=== PATIENT | male | born 1965 | race Caucasian/White ===

== ENCOUNTER → 2017-01-10 | Day surgery (SDC) | payer OTHER ==
[~2017-01-10] MED LIST: ACETAMINOPHEN 1000 MG/100 ML 100 ML IV ONE; BUPIVACAINE/EPINEPHRINE 0.5% 50 ML VIAL ONE; LACTATED RINGER'S 1000 ML INJ 1,000 ML ONE; MIDAZOLAM HCL 2 MG/2 ML VIAL ONE; ONDANSETRON HCL 4 MG/2 ML VIAL IV PUSH ONE; PROPOFOL 200 MG/20 ML AMP IV ONE
--- NOTE | 2017-01-10 17:42 | MP ---
cc: MONICA BARFIELD DATE OF SURGERY 01/10/17 PREOPERATIVE DIAGNOSIS Malignant melanoma upper back. POSTOPERATIVE DIAGNOSIS Malignant melanoma upper back. PROCEDURE Wide excision of malignant melanoma upper back. SURGEON Viky Barfield MD ANESTHESIA General OPERATIVE PROCEDURE The patient was brought to the operating room and, after satisfactory general anesthesia had been obtained, the patient was placed in the left lateral decubitus position and the upper back prepped and draped in the usual sterile fashion. An elliptical skin incision was marked with a sterile pen to include a wide excision around the lesion. The incision was made and carried out sharply through the subcutaneous tissue with the cautery being used for hemostasis. The ellipse of skin was removed along with the subcutaneous tissue using the cautery. It was marked for margins and sent for permanent pathology. Attention was turned to hemostasis which was achieved with the cautery. The subcutaneous tissue was then undermined with the cautery after instilling extra 0.5% Marcaine with epinephrine. The skin was then able to be approximated with minimal tension. The dermal layer was closed with interrupted 3-0 as well as interrupted 2-0 Vicryl sutures. The skin subcuticular stitch was placed with interrupted 4-0 PDS. Steri-Strips and then a sterile compression dressing were placed. The patient was then awakened and taken from the operating room, in satisfactory condition, having tolerated the procedure without a problem. Estimated blood loss was less than 30 mL. The instrument, sponge and needle counts were reported as being correct x2 at the end of the procedure. MD TERRELL Danielson/ /2:31 PM /5:43 PM
== END | disposition home or self-care (01) ==
LOC: ESDC 11:35
PROVIDERS: ATTEND Surgery
DX: C43.59 Malignant melanoma of other part of trunk (principal)
CPT/HCPCS: 00300; 11606; 88305; J0131; J2250; J2405; J3010; J7120

== ENCOUNTER → 2017-03-21 | Day surgery (SDC) | payer OTHER ==
[~2017-03-21] MED LIST changes: +KETOROLAC TROMETHAMINE 30 MG/ML (IVP) VIAL IV PUSH ONE; -LACTATED RINGER'S 1000 ML INJ 1,000 ML ONE; -PROPOFOL 200 MG/20 ML AMP IV ONE; +PROPOFOL 500 MG/50 ML BTL IV ONE; +SODIUM CHLOR 0.9% 1000 ML BAG IV ONE; +ceFAZolin 2 GM PREMIX 50 ML ONE
--- NOTE | 2017-03-21 18:10 | TN ---
cc: EVERARDO MICHAEL M.D. DATE OF SURGERY 03/21/2017 PREOPERATIVE DIAGNOSES 1. Bilateral inguinal hernia. 2. Umbilical hernia. POSTOPERATIVE DIAGNOSES 1. Bilateral inguinal hernia. 2. Umbilical hernia. PROCEDURE 1. Laparoscopic repair of bilateral inguinal hernia with mesh. 2. Repair of umbilical hernia. ANESTHESIA General. SURGEON Dr. Michael INDICATION This is a pleasant 51-year-old gentleman who had the above-mentioned hernias. Plans were made for repair. PROCEDURE DETAILS The patient was taken to the operating room and placed in the supine position. After anesthesia his abdomen was prepped with Betadine. He is given preoperative antibiotics. Time-out was done. We make an incision at the umbilicus down to the fascia which is incised. We gain access to the preperitoneal space. The dissecting balloon is then placed, pumped up to 40 pumps on the dissecting balloon to identify the bilateral inguinal hernias. This was done by videoscopic surveillance. Once the dissecting balloon was pumped to 40 pumps we removed the dissecting balloon and placed a balloon trocar. The preperitoneal space was then insufflated to 15 mmHg pressure. Two other working ports placed 5 mm above the pubic tubercle and 5 mm in the midline between the two previously placed ports. We then direct our attention to left side. The hernia sac is easily identified. The cord structures were identified. Cord lipoma is reduced into the preperitoneal space. The hernia sac is reduced. The epigastric vessels are noted. We create a posterior window. We then place a piece of polypropylene mesh cut to size 3 x 6 cm and secure it to the pubic tubercle, Jake's ligament and the anterior abdominal wall using the tacking device. Tails were then fashioned and secured to themselves using the tacking device avoiding the epigastric vessels out laterally. We tacked this to the fascia avoiding the cutaneous nerves. A small slit of mesh is then used to buttress the crotch of the mesh securing this to Jake's ligament and the mesh just lateral to the cord structures and the epigastric vessels. We then direct our attention to the right side. A similar defect is seen. We were able to completely reduce this, we got a posterior window. The small cord lipoma is reduced. The hernia sac is completely reduced. We then place a similar piece of mesh securing it to the pubic tubercle, Jake's ligament and tails were then fashioned and secured to themselves tacked along the anterior abdominal wall. A small slit of mesh 3 x 1 cm is then placed at the crotch of the mesh to further buttress this with the strap. The area in question is visualized. There was excellent hemostasis. We did place 10 mL of Marcaine in the preperitoneal space for postop pain control. The trocars were then removed. The air is removed from the preperitoneal space. The umbilical hernia is then identified. The hernia is identified. We completely reduce it from the umbilicus. We completely reduced the hernia defect that measured just under a centimeter. We are able to close this in a horizontal fashion with a 0 Ethilon suture. The fascial defect made to gain access to preperitoneal space was then closed with a 0 Vicryl suture. The skin at the three port sites is then closed with a 4-0 Vicryl. Steri-Strips applied. Sterile bandage applied. The patient tolerated the procedure and had no immediate postop complications. Everardo Michael MD [id number] /5:20 PM /5:40 PM
== END | disposition home or self-care (01) ==
LOC: ESDC 06:32
PROVIDERS: ATTEND Surgery
DX: K40.20 Bilateral inguinal hernia, without obstruction or gangrene, not specified as recurrent (principal); K42.9 Umbilical hernia without obstruction or gangrene
CPT/HCPCS: 00750; 00840; 49585; 49650; C1727; C1781; J0131; J0690; J1885; J2250; J2405; J3010; J7030